=== PATIENT | male | born 1970 | race Caucasian/White ===

== ENCOUNTER → 2016-09-22 | Outpatient (CLI) | payer OTHER ==
--- NOTE | 2016-09-22 13:11 | NM ---
Nuclear Medicine Gastric Emptying Study Clinical History: 46-year-old male with nondiabetic obesity, presenting for assessment of gastric emp tying function. ICD-10 Diagnostic Code: E66.9. Radiopharmaceutical: 2.4 mCi of technetium 99m sulfur colloid mixed in an egg sandwich. Technique: After the consumption of the oral radiopharmaceutical meal, imaging of the left upper quad rant of the abdomen was performed, and a time activity curve was plotted with percentage emptying and retention rates calculated. Comparison study: None. Findings: There is appropriate egress of the radiotracer from the stomach into the small bowel. At 3 0 minutes, there is 60% retention; at 60 minutes there is 26% retention; at 90 minutes there is 17% r etention; at 2 hours there is 7% retention; at 3 hours there is 1% retention, and at 4 hours there is less than 1% retention. According to consensus data from a joint report of the [place] [employer] and the Society of Nuclear Medicine, the above features are within normal range, with no pathol ogic gastric retention. As a point of reference, at 4 hours, mild retention is 11-15%, moderate reten tion is 16-35%, and severe retention is greater than 35%. Impression: Normal study.
== END ==
LOC: FIMAGING 07:57
PROVIDERS: ATTEND Internal Medicine Gastroenterology
DX: E66.9 Obesity, unspecified (principal)
CPT/HCPCS: 78264; A9541

== ENCOUNTER → 2016-09-24 | Outpatient (CLI) | payer OTHER ==
--- NOTE | 2016-09-24 12:32 | DX ---
Biphasic Upper GI Series with Small Bowel Follow Through Clinical History: 46-year-old male who has some localized left upper quadrant abdominal discomfort si nce July, as well as intermittent episodes of generalized abdominal distention after eating or dr inking, and has had a prior negative nuclear medicine gastric emptying study. The patient reportedly had prior upper endoscopy 2 years ago in [place], revealing some esophagitis and a gastritis. Technique: While the patient was standing, effervescent crystals and thick barium were ingested and fluoroscopy of the hypopharynx and of the cervical and thoracic esophagus was performed. Imaging was obtained in AP, LPO, and left lateral positions. Subsequently, imaging of the stomach was obtained wi th the patient supine, LPO, RPO, left lateral decubitus, and prone. Finally, a prone DE DIOS drinking eso phagus was performed with Valsalva maneuver. The patient consumed some additional Entero Vu, and sequ ential overhead radiographs of the abdomen were obtained over the course of an hour with spot fluoros copy acquired. Fluoroscopy Time: 3.4 minutes (entrance dose 213.20 mGy). Findings: UPPER GI SERIES: There is appropriate oropharyngeal propulsion of the bolus into the hypopharynx, wi th a normal, symmetrical appearance to the vallecula and piriform sinuses. The posterior cervical eso phagus is normal. There is no evidence of aspiration. There is antegrade esophageal motility noted wh en standing. When the patient went from a standing to a supine position, there were several episodes of gastroesophageal reflux to the midthoracic esophagus, which then cleared. With a Valsalva maneuver , a tiny hiatal hernia was transiently elicited. There is no esophageal ulceration, pulsion diverticu lum, or stricture. There is some mild fold thickening at the distal thoracic esophagus, consistent wi th mild esophagitis. The stomach is normal in size, shape, position, with a normal mucosal fold patte rn. There is no ulceration or polypoid structure observed. There is prompt egress of barium into a no rmal-appearing duodenal bulb and C-sweep. SMALL BOWEL FOLLOW-THROUGH SERIES: There is normal positioning of the duodenum, ligament of Treitz, jejunum, and ileum, and a normal mucosal fold pattern. The small bowel intestinal transit time is nor mal, reaching the cecum by one hour (normal should be under 3 hours). Spot films of the terminal ileu m are unremarkable. Impression: 1. Intermittent episodes of the [id number] gastroesophageal reflux when the patient was supine or p ruben with a tiny hiatal hernia elicited with a Valsalva maneuver. There was some mild distal thoracic esophagitis, but no ulceration. 2. Normal small bowel follow through series. Should there be progression of the patient's symptoms, endoscopic correlation and/or contrast-enhance d CT imaging could be considered. I provided a preliminary interpretation to the patient at the time of exam performance.
== END ==
LOC: FIMAGING 07:51
PROVIDERS: ATTEND Internal Medicine Gastroenterology
DX: K21.9 Gastro-esophageal reflux disease without esophagitis (principal); K44.9 Diaphragmatic hernia without obstruction or gangrene; E66.9 Obesity, unspecified

== ENCOUNTER → 2017-06-08 | Outpatient (CLI) | payer OTHER ==
[~2017-06-08] MED LIST: GADOBUTROL 10 ML VIAL IVP ONE
== END ==
LOC: FIMAGING 13:18
PROVIDERS: ATTEND Psychiatry & Neurology Neurology
DX: G37.9 Demyelinating disease of central nervous system, unspecified (principal); M48.02 Spinal stenosis, cervical region; R51 Headache
CPT/HCPCS: 70553; 72156; A9585

== ENCOUNTER 2017-06-27 09:08 | Emergency (ER) | payer OTHER ==
--- NOTE | 2017-06-27 09:20 | CPEKG ---
Heart Rate: 85 RR Interval: 706 P-R Interval: 180 QRSD Interval: 90 QT Interval: 388 QTC Interval: 462 P [place]: -11 QRS [place]: -5 T Wave [place]: -1 EKG Severity - BORDERLINE ECG - EKG Impression: SINUS RHYTHM EKG Impression: ABERRANT COMPLEX, POSSIBLY SUPRAVENTRICULAR EKG Impression: BORDERLINE T ABNORMALITIES, INFERIOR LEADS Electronically Signed By: Davy Jacob 27-Jun-2017 13:18:01
--- NOTE | 2017-06-27 09:30 | EDPHY ---
H & P Time Seen by Provider: 06/27/17 09:16 HPI/ROS: CHIEF COMPLAINT: Irregular heartbeat HISTORY OF PRESENT ILLNESS: 46-year-old male presents to the emergency department by private vehicle complaining of feeling of irregular heartbeat over last 1 week. Patient states that this is not accompanied by pain. Feels mildly short of breath and feels "like he is tiring more easily ". He has never had these symptoms in the past. Did see a tv technician few years ago for possible SVT. This resolved on its own. No intervention was necessary. No change in medications. No reported trauma. No headache. No fevers or chills. No abdominal pain or vomiting. REVIEW OF SYSTEMS: Constitutional: No fever, no chills. Eyes: No double or blurry vision. ENT: No sore throat. Respiratory: As above. No cough. Cardiac: No chest pain. Gastrointestinal: No abdominal pain, vomiting or diarrhea. Genitourinary: No dysuria. Musculoskeletal: No neck or back pain. Skin: No rashes. Neurological: No headache. Past Medical/Surgical History: GERD, chronic neck and back pain Social History: and lives in [place] Smoking Status: Current some day smoker Physical Exam: General Appearance: Alert, no distress. 161/94 Eyes: Pupils equal and round. Extraocular motions are all intact. ENT: Mouth: Mucous membranes moist. Respiratory: No wheezing, rhonchi, or rales, lungs are clear to auscultation. Cardiovascular: Regular rate and rhythm. Gastrointestinal: Abdomen is soft and nontender, no masses, no rebound or guarding, bowel sounds normal. Neurological: Alert and oriented x 3, cranial nerves II through XII grossly intact Skin: Warm and dry, no rashes. Musculoskeletal: Nontender to palpate along the cervical, thoracic or lumbar spine. Neck is supple. Extremities: Full range of motion and no peripheral edema. Psychiatric: Patient is oriented X 3, there is no agitation. Constitutional: Initial Vital Signs Temperature (C) 36.9 C 06/27/17 09:10 Heart Rate 87 06/27/17 09:10 Respiratory Rate 18 06/27/17 09:10 Blood Pressure 161/94 H 06/27/17 09:10 O2 Sat (%) 94 06/27/17 09:10 O2 Delivery Mode Room Air Allergies/Adverse Reactions: No Known Allergies Allergy (Verified 06/27/17 09:13) Home Medications: Medication Instructions Recorded Omeprazole 06/27/17 Medical Decision Making - Diagnostics Imaging Results: Imaging Impressions Chest X-Ray 06/27/17 09:27 Impression: Normal. No acute process. Imaging: I viewed and interpreted images myself ED Course/Re-evaluation: 46-year-old male presents to the emergency department feeling that his heart is beating irregular. Patient had an EKG which revealed normal sinus rhythm. Laboratory studies including troponin and D-dimer were both negative. Chemistries were negative. Chest x-ray was unremarkable. The case was discussed with Dr. Davy Jacob, secondary supervising physician, who did not directly evaluate the patient but agrees with treatment and plan. The patient was monitored for nearly 2 hours in the emergency department. He was kept on a telemetry monitor. He had normal sinus rhythm with occasional PACs. He was given Cardiology referral. He has seen Dr. Jhonatan Yee in the past. He was instructed to return to the emergency department if he developed pain in his chest, difficulty breathing, or if he felt worse in any way. Patient was comfortable with this plan. Differential Diagnosis: Palpitations including but not limited to arrhythmia, electrolyte abnormality, myocardial infarction, pulmonary embolism, pneumonia, dehydration, anxiety, stress - Data Points Laboratory Results: Laboratory Results 06/27/17 09:27 06/27/17 09:27 06/27/17 06/27/17 06/27/17 09:27 09:27 09:27 WBC 8.19 10^3/uL 10^3/uL (3.80-9.50) RBC 5.45 10^6/uL 10^6/uL (4.40-6.38) Hgb 16.6 g/dL g/dL (13.7-17.5) Hct 47.1 % % (40.0-51.0) MCV 86.4 fL fL (81.5-99.8) MCH 30.5 pg pg (27.9-34.1) MCHC 35.2 g/dL g/dL (32.4-36.7) RDW 13.2 % % (11.5-15.2) Plt Count 185 10^3/uL 10^3/uL (150-400) MPV 9.8 fL fL (8.7-11.7) Neut % (Auto) 67.7 % % (39.3-74.2) Lymph % (Auto) 23.4 % % (15.0-45.0) [place] % (Auto) 6.8 % % (4.5-13.0) Eos % (Auto) 1.2 % % (0.6-7.6) Baso % (Auto) 0.5 % % (0.3-1.7) Nucleat RBC Rel Count 0.0 % % (0.0-0.2) Absolute Neuts (auto) 5.54 10^3/uL 10^3/uL (1.70-6.50) Absolute Lymphs (auto) 1.92 10^3/uL 10^3/uL (1.00-3.00) Absolute Monos (auto) 0.56 10^3/uL 10^3/uL (0.30-0.80) Absolute Eos (auto) 0.10 10^3/uL 10^3/uL (0.03-0.40) Absolute Basos (auto) 0.04 10^3/uL 10^3/uL (0.02-0.10) Absolute Nucleated RBC 0.00 10^3/uL 10^3/uL (0-0.01) Immature Gran % 0.4 % % (0.0-1.1) Immature Gran # 0.03 10^3/uL 10^3/uL (0.00-0.10) D-Dimer < 0.27 ug/mLFEU ug/mLFEU (0.00-0.50) Sodium 140 mEq/L mEq/L (134-144) Potassium 4.3 mEq/L mEq/L (3.5-5.2) Chloride 106 mEq/L mEq/L (97-110) Carbon Dioxide 23 mEq/l mEq/l (22-31) Anion Gap 11 mEq/L mEq/L (8-16) BUN 13 mg/dL mg/dL (7-23) Creatinine 1.0 mg/dL mg/dL (0.7-1.3) Estimated GFR > 60 Glucose 107 mg/dL H mg/dL (70-100) Calcium 9.8 mg/dL mg/dL (8.5-10.4) Troponin I < 0.012 ng/mL ng/mL (0.000-0.034) Departure - Departure Disposition: Home, Routine, Self-Care Clinical Impression: Palpitations Condition: Good Instructions: Palpitations (ED) Additional Instructions: You should follow up with tv technician on-call. Avoid caffeine or any other stimulants. Activity as tolerated. Return to the emergency department if you developed recurring palpitations, if he developed pain in her chest, difficulty breathing, or if you feel worse in any way. Referrals: Jhonatan Yee MD [Medical Doctor] - 2-3 days, call for appt. ([place])
[2017-06-27 09:35] LABS: % IMMATURE GRANULYOCYTES 0.4 % (0.0-1.1); ABSOLUTE IMMATURE GRANULOCYTES 0.03 10^3/uL (0.00-0.10); ADD DIFF? NO; ADD MORPH? NO; ADD SCAN? NO; ATYPICAL LYMPHOCYTE FLAG 10 (0-99); FRAGMENT RBC FLAG 0 (0-99); HEMATOCRIT 47.1 % (40.0-51.0); HEMOGLOBIN 16.6 g/dL (13.7-17.5); LEFT SHIFT FLG 0 (0-99); LIPEMIA HEMOLYSIS FLAG 90 (0-99); MEAN CELL HEMOGLOBIN 30.5 pg (27.9-34.1); MEAN CELL HEMOGLOBIN CONCENTR. 35.2 g/dL (32.4-36.7); MEAN CELL VOLUME 86.4 fL (81.5-99.8); MEAN PLATELET VOLUME 9.8 fL (8.7-11.7); PLATELET CLUMPS FLAG 0 (0-99); PLATELET COUNT 185 10^3/uL (150-400); RED BLOOD CELL COUNT 5.45 10^6/uL (4.40-6.38); RED CELL DISTRIBUTION WIDTH 13.2 % (11.5-15.2)
[2017-06-27 09:46] LABS: ANION GAP 11 mEq/L (8-16); CALCIUM 9.8 mg/dL (8.5-10.4); CARBON DIOXIDE 23 mEq/l (22-31); CHLORIDE 106 mEq/L (97-110); GLOMERULAR FILTRATION RATE > 60; GLUCOSE 107 mg/dL (70-100); POTASSIUM 4.3 mEq/L (3.5-5.2); SODIUM 140 mEq/L (134-144)
[2017-06-27 09:58] LABS: TROPONIN I < 0.012 ng/mL (0.000-0.034)
[2017-06-27 10:57] VITALS: BP 140/89; PULSE 78; RESP 16; TEMP 97.2; O2SAT 96
--- NOTE | 2017-06-29 10:06 | CPEKG ---
Heart Rate: 80 RR Interval: 750 P-R Interval: 188 QRSD Interval: 90 QT Interval: 376 QTC Interval: 434 P [place]: 26 QRS [place]: 32 T Wave [place]: 2 EKG Severity - NORMAL ECG - EKG Impression: SINUS RHYTHM Electronically Signed For: Davy Jacob 29-Jun-2017 10:09:20
== END 2017-06-27 10:57 | disposition home or self-care (01) ==
DX: R00.2 Palpitations (principal); F17.200 Nicotine dependence, unspecified, uncomplicated

== ENCOUNTER → 2017-07-23 | Outpatient (CLI) | payer OTHER | LOC: BHLMT 09:00 | PROVIDERS: ATTEND Internal Medicine Cardiovascular Disease | DX: R00.2 Palpitations (principal) | CPT/HCPCS: 93225-PO; 93226-PO ==

== ENCOUNTER → 2017-07-28 | Outpatient (CLI) | payer OTHER | LOC: BHLMT 09:00 | PROVIDERS: ATTEND Internal Medicine Cardiovascular Disease | DX: R00.2 Palpitations (principal) ==

== ENCOUNTER → 2017-11-24 | Outpatient (CLI) | payer OTHER | LOC: GIMAGING 11:16 | PROVIDERS: ATTEND Internal Medicine | DX: M54.6 Pain in thoracic spine (principal); M54.2 Cervicalgia ==

== ENCOUNTER → 2018-01-15 | Outpatient (CLI) | payer OTHER | LOC: FIMAGING 11:38 | PROVIDERS: ATTEND Internal Medicine | DX: M50.30 Other cervical disc degeneration, unspecified cervical region (principal); M47.892 Other spondylosis, cervical region; M99.71 Connective tissue and disc stenosis of intervertebral foramina of cervical region; M51.34 Other intervertebral disc degeneration, thoracic region; M47.894 Other spondylosis, thoracic region; M53.3 Sacrococcygeal disorders, not elsewhere classified; Z15.89 Genetic susceptibility to other disease ==